=== PATIENT | male | born 1985 | race Caucasian/White ===

== ENCOUNTER 2018-10-24 10:42 | Emergency (ER) | payer MEDICAID | END 2018-10-24 11:40 | disposition left against medical advice (07) | LOC: EDBD 10:42 → ER 10:46 | DX: R07.9 Chest pain, unspecified (principal); Z53.21 Procedure and treatment not carried out due to patient leaving prior to being seen by health care provider ==

== ENCOUNTER 2018-10-24 13:30 | Emergency (ER) | payer MEDICAID ==
[~2018-10-24] VITALS: Ht 180.3 cm; Wt 113.4 kg
[2018-10-24 14:14] LABS: Hemoglobin 18.1 g/dL (13.5-17.5); Mean Corpuscular Volume 90.4 fL (80.0-100.0)
[2018-10-24 14:16] LABS: Basophils # (auto) 0.1 uL; Basophils % (auto) 0.5 % (0.0-2.0); Eosinophils # (auto) 0 uL; Eosinophils % (auto) 0.2 % (0.0-7.0); Hematocrit 53.2 % (41.0-53.0); Lymphocytes # (auto) 1.9 uL; Lymphocytes % (auto) 9.2 % (10.0-50.0); Mean Corpuscular Hemoglobin 30.7 pg (28.0-32.0); Monocytes # (auto) 1.8 uL; Monocytes % (auto) 8.8 % (0.0-12.0); Neutrophils # (auto) 16.6 uL; Neutrophils % (auto) 81.3 % (37.0-80.0); Nucleated Red Blood Cells % 0.1 %; Platelet Count (auto) 395 10^3/uL (140-450); Red Blood Cells 5.89 10^6/uL (4.5-5.90); Red Cell Distribution Width 14.4 % (11.8-14.3); White Blood Cell 20.4 10^3/uL (4.4-10.8)
[2018-10-24] MEDS ORDERED: SODIUM CHLORIDE 0.9% 1,000 ML IV ONE ×2 (14:30→19:15)
[2018-10-24 14:31] LABS: Alanine Aminotransferase 49 U/L (16-61); Albumin 4.4 g/dL (3.4-5.0); Anion Gap 16 (5-15); Aspartate Aminotransferase 38 U/L (15-37); Blood Urea Nitrogen 26 mg/dL (7-18); Calcium 9.9 mg/dL (8.5-10.1); Carbon Dioxide 20 mmol/L (21-32); Chloride 94 mmol/L (98-107); Glucose 126 mg/dL (74-106); Sodium 130 mmol/L (136-145)
[2018-10-24 14:36] LABS: Alkaline Phosphatase 90 U/L (45-117); BUN/Creatinine Ratio 13.3; Bilirubin, Total 3.2 mg/dL (0.2-1.0); GFR African American 51 mL/min; GFR Non-African American 42 mL/min; Total Protein 9.2 g/dL (6.4-8.2)
[2018-10-24 15:48] VITALS: BP 110/89
== END 2018-10-24 19:10 | disposition left against medical advice (07) ==
LOC: ER 13:30
DX: R07.9 Chest pain, unspecified (principal); R11.2 Nausea with vomiting, unspecified; Z53.21 Procedure and treatment not carried out due to patient leaving prior to being seen by health care provider
CPT/HCPCS: 36415; 71046; 80053; 82962; 83735; 84484; 85025

== ENCOUNTER 2020-05-24 01:56 | Emergency (ER) | payer MEDICAID ==
[~2020-05-24] VITALS: Ht 175.3 cm; Wt 145.1 kg
[2020-05-24 04:01] VITALS: BP 143/84
== END 2020-05-24 04:03 | disposition home or self-care (01) ==
LOC: ER 01:59
DX: R06.02 Shortness of breath (principal)
CPT/HCPCS: 71045